=== PATIENT | male | born 1985 | race Two or more races ===

== ENCOUNTER 2021-11-30 11:07 | Emergency (ER) | payer OTHER ==
[~2021-11-30] VITALS: Ht 162.6 cm; Wt 58.1 kg
--- NOTE | 2021-11-30 11:33 | NUR ---
Patient discharged in custody of [employer] [id number] of [facility] in stable condition. Written and verbal after care instructions given. Police Officers and patient verbalizes understanding of instruction.
[2021-11-30 11:34] VITALS: BP 109/82
== END 2021-11-30 11:34 ==
LOC: ER 11:10
DX: Z02.89 Encounter for other administrative examinations (principal); Z60.2 Problems related to living alone